=== PATIENT | female | born 1970 | race Caucasian/White ===

== ENCOUNTER 2019-03-25 06:07 | Emergency (ER) | payer OTHER ==
[~2019-03-25] VITALS: Ht 170.2 cm; Wt 111.6 kg
[~2019-03-25 06:07] MED LIST: ALBUTEROL2.5 MG/31; BACTRIM DS TAB1 EACH PO; IBUPROFEN 800800 M1 PO
[2019-03-25] MEDS ORDERED: AMITRIPTYLINE H25 M4 (06:16)
[2019-03-25] MEDS ORDERED: TRAZODONE HCL100 MG (06:17)
[2019-03-25 06:30] LABS: ABSOLUTE BASOPHILS 0.1 thou/uL (0.0-0.2); ABSOLUTE EOSINOPHILS 0.2 thou/uL (0.0-0.7); ABSOLUTE MONOCYTES 0.6 thou/uL (0.0-1.2); ABSOLUTE NEUTROPHILS 4.3 thou/uL (1.6-8.1); BASOPHILS 1.2 %; EOSINOPHILS 2.1 %; HEMATOCRIT 40.3 % (37.0-47.0); HEMOGLOBIN 13.4 gm/dL (12.0-15.0); MCH 28.6 pg (26.0-34.0); MCHC 33.1 g/dL (28.0-37.0); MCV 86.4 fL (80.0-100.0); MONOCYTES 7.5 %; MPV 9.5 fl. (7.2-11.1); NUCLEATED RBCS 0 /100WBC; PLATELET COUNT* 246 thou/uL (150-400); POLYS 52.2 %; RBC 4.66 mil/uL (4.20-5.00); WBC 8.2 thou/uL (4.0-11.0)
[2019-03-25 06:43] LABS: ANION GAP 10 mmol/L (7-16); BUN 11 mg/dL (7-18); CALCIUM 8.7 mg/dL (8.5-10.1); CHLORIDE 106 mmol/L (98-107); CO2 28 mmol/L (21-32); CREATININE 0.8 mg/dL (0.6-1.3); GLUCOSE 95 mg/dL (70-99); POTASSIUM 3.7 mmol/L (3.5-5.1); SODIUM 144 mmol/L (136-145)
[2019-03-25 06:55] LABS: ALBUMIN 3.4 g/dL (3.4-5.0); ALKALINE PHOSPHATASE 119 U/L (46-116); LIPASE 173 U/L (73-393); NT-PRO BRAIN NAT PEPTIDE 61 pg/mL (<300); SGOT 25 U/L (15-37); SGPT 29 U/L (30-65); TOTAL BILIRUBIN 0.2 mg/dL (<0.1-1.0); TOTAL PROTEIN 7.3 g/dL (6.4-8.2); TROPONIN-I LEVEL <0.06 ng/mL (<0.06)
[2019-03-25 07:28] LABS: INR 0.9; PROTIME 9.6 Seconds (9.20-11.50)
[2019-03-25 09:44] VITALS: BP 115/80
--- NOTE | 2019-03-25 10:22 | EKG ---
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
--- NOTE | 2019-03-25 16:27 | EKG ---
[place] [address] ELECTROCARDIOGRAM REPORT Name: GAGE CAMPOS Room: [facility]#: [id number] Admission: 03/25/19 Attend Phys: Discharge: 03/25/19 Date of : 66 Report #: [id number] THIS REPORT FOR: //name// [facility] ED Test Date: 2019-03-25 Test Time: 08:58:14 Pat Name: GAGE CAMPOS Department: Room: Gender: F [employer] P[employer]: LAITH : 1970 Requested By: Gigi Kong Order Number: [id number] MD: David Lyons Measurements Intervals [place] Rate: 81 P: 66 [place]: 126 QRS: 64 QRSD: 99 T: 52 QT: 402 QTc: 467 Interpretive Statements Sinus rhythm Borderline T wave abnormalities Compared to ECG 03/25/2019 06:10:05 T-wave abnormality now present Electronically Signed On 03-25-2019 16:26:54 CDT by David Lyons [email or web address] <ELECTRONICALLY SIGNED> By: David Lyons MD, [facility] 03/25/19 1626 [id number] David Lyons MD, [facility] /EPI
== END 2019-03-25 09:44 | disposition home or self-care (01) ==
LOC: M.ERS 06:07
PROVIDERS: Emergency Medicine
DX: R07.89 Other chest pain (principal); F17.210 Nicotine dependence, cigarettes, uncomplicated; J45.909 Unspecified asthma, uncomplicated